=== PATIENT | female | born 1980 | race African-American/Black ===

== ENCOUNTER 2016-09-26 12:11 | Emergency (ER) | payer MEDICAID, OTHER ==
[2016-09-26 12:24] VITALS: BP 99/83
[2016-09-26] MEDS ORDERED: Ketorolac 60 MG/2 ML SDV IM ONE (13:07)
[2016-09-26] MEDS ORDERED: Orphenadrine 100 MG Tab.ER PO ONE (13:07)
--- NOTE | 2016-09-26 13:13 | EDM.PDOC ---
ED HPI GENERAL MEDICAL PROBLEM - General Chief Complaint: Back Pain or Injury Stated Complaint: BACK PAIN Time Seen by Provider: 09/26/16 12:50 Source of Information: Reports: Patient History Limitations: Reports: No Limitations - History of Present Illness INITIAL COMMENTS - FREE TEXT/NARRATIVE: Patient is a 36-year-old female who presents to the ED complaining of left- sided mid thoracic and lumbar back pain to paraspinal muscles. Patient states approx 3 weeks ago she was moving a dresser and while doing this strained some muscles in her back. Pain has waxed and waned in intensity with no relief taking Tylenol, ibuprofen, Percocet and tramadol. Pain worsens with lifting or any type of movement. Decreased with resting. Pain is localized with no radiation. She has a history of injury to her back many years ago with similar symptoms. There is no sciatica, saddle anesthesia, numbness or tingling to extremities, or incontinence to urine or stool. She describes discomfort as a muscle strain. The Percocet and tramadol were not hers but her sisters. She's been taking these as needed. 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 States work re-aggravates the injury. She cannot take any time off. Otherwise offers no additional complaints. 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: - Past Surgical History Other HEENT Surgeries/Procedures: missing teeth Female Surgical History: Reports: Section Social & Family History - Tobacco Use Smoking Status *Q: Current Some Day Smoker Years of Tobacco use: 16 Packs/Tins Daily: 1 Used Tobacco, but Quit: No Second Hand Smoke Exposure: No - Caffeine Use Caffeine Use: Reports: Coffee - Alcohol Use Days Per Week of Alcohol Use: 0 - Recreational Drug Use Recreational Drug Use: Yes Drug Use in Last 12 Months: Yes Recreational Drug Type: Reports: Marijuana/Hashish Other Recreational Drug Type: last use was a couple of weeks ago Recreational Drug Use Frequency: Socially Recreational Drug Last Use: august 2014 ED ROS GENERAL - Review of Systems Review Of Systems: ROS reveals no pertinent complaints other than HPI. ED EXAM,LOWER BACK PAIN/INJURY - Physical Exam Exam: See Below Exam Limited By: No Limitations General Appearance: Alert, WD/WN, No Apparent Distress Ears: Normal External Exam, Hearing Grossly Normal Throat/Mouth: Normal Voice, No Airway Compromise Neck: Normal Inspection, Supple, Non-Tender, Full Range of Motion Respiratory/Chest: No Respiratory Distress, Lungs Clear, Normal Breath Sounds Cardiovascular: Normal Peripheral Pulses, Regular Rate, Rhythm GI/Abdominal: Normal Bowel Sounds Back Exam: Other (Pain along the left paraspinal muscle mid thoracic and lumbar spine. No vertebral tenderness noted. No bruising, swelling, ecchymosis noted. Pain is localized with palpation. No bony abdomen is noted.) Extremities: Normal Inspection, Normal Range of Motion, Non-Tender, No Pedal Edema Neurological: Alert, Normal Mood/Affect, Normal Dorsiflexion, CN II-XII Intact ( As tested), Normal Plantar Flexion, No Motor/Sensory Deficits, Oriented x 3. No : Straight Leg Raise (L), Straight Leg Raise (R) Psychiatric: Normal Affect, Normal Mood Skin Exam: Warm, Dry, Intact, Normal Color Course - Vital Signs Last Recorded V/S: Last Vital Signs Temp 97.1 F 09/26/16 12:19 Pulse 87 09/26/16 12:19 Resp 16 09/26/16 12:19 BP 99/83 09/26/16 12:19 Pulse Ox 99 09/26/16 12:19 - Orders/Labs/Meds Meds: Medications Discontinued Medications Generic Name Dose Route Start Last Admin Trade Name Rachel PRN Reason Stop Dose Admin Ketorolac Tromethamine 60 mg 09/26/16 13:07 09/26/16 13:14 Toradol IM 09/26/16 13:08 60 mg ONETIME ONE Administration Orphenadrine Citrate 100 mg 09/26/16 13:07 09/26/16 13:14 Norflex PO 09/26/16 13:08 100 mg BID ONE Administration - Re-Assessments/Exams Free Text/Narrative Re-Assessment/Exam: Examination did not reveal any concerning findings. Pain is localized to the left mid thoracic paraspinal muscles worsened with palpation. No bony abnormality is noted. Will order Toradol 60 mg IM and also Norflex 100 mg by mouth. Presumably this is a muscle strain with history of muscle spasms. Patient is already taking ibuprofen, Tylenol, tramadol, and Percocet. The narcotics are her sisters. Will discharge patient home with instructions as documented. Departure - Departure Time of Disposition: 13:27 Disposition: Home, Self-Care 01 Condition: Good Clinical Impression: Strain of back Qualifiers: Encounter type: initial encounter Qualified Code(s): S39.012A - Strain of muscle, fascia and tendon of lower back, initial encounter - Discharge Information Prescriptions: Orphenadrine [Norflex] 100 mg PO BID #6 tab.er Instructions: Muscle Strain, [id number], Back Injury Prevention, [id number] , Back Pain, Adult, [id number] Referrals: PCP,None [Primary Care Provider] - Forms: ED Department Discharge Additional Instructions: Etiology current complaint muscle strain. Continue utilizing Tylenol 650 mg by mouth every 6 hours and ibuprofen 600 mg every 6 hours by mouth in alternating fashion for pain. Take the ibuprofen with food and drink plenty of water. Taking Norflex as prescribed. Refrain from any activities that cause worsening pain. Can utilize warm compresses, cold Compresses, and also gentle massage. CT a primary care provider at [facility] and [facility] for reevaluation and treatment end of this week or first part of next week. Return to ED for any new or worsening symptoms. No driving today nor while taking the norflex.
== END 2016-09-26 13:27 | disposition home or self-care (01) ==
LOC: JD.ED 12:11
DX: S39.012A Strain of muscle, fascia and tendon of lower back, initial encounter (principal); F17.210 Nicotine dependence, cigarettes, uncomplicated; X50.0XXA Overexertion from strenuous movement or load, initial encounter
CPT/HCPCS: 96372; 99283; A9270; J1885

== ENCOUNTER 2016-11-02 18:37 | Emergency (ER) | payer MEDICAID ==
[2016-11-02 19:05] VITALS: BP 125/88
--- NOTE | 2016-11-02 19:25 | EDM.PDOC ---
ED HPI GENERAL MEDICAL PROBLEM - General Chief Complaint: Back Pain or Injury Stated Complaint: back pain Time Seen by Provider: 11/02/16 19:15 Source of Information: Reports: Patient History Limitations: Reports: No Limitations - History of Present Illness INITIAL COMMENTS - FREE TEXT/NARRATIVE: 36-year-old female presents the ED with sudden onset of severe upper back pain that occurred in the workplace this afternoon. 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 She states that she was taking carrying a tray of about 40 pounds weight to her workstation she developed sudden onset of severe spasm in her upper back right side greater than left. Just about caused her to drop the tray of meat. Another coworker took the tray from her hands before she dropped it. Since then it hurts to breathe deeply. She states she's had many similar type of problems over many years. States one of her teenage kids jumped on her back yesterday and although the time she did not feel that she had been injured it is possible this caused problems. Onset: Today Onset Date: 11/02/16 Onset Time: 17:00 Duration: Hour(s): Location: Reports: Back (Upper mid back) Quality: Reports: Ache, Sharp, Stabbing, Other Severity: Moderate (Worsens by deep breathing currently 6 out of 10.) Improves with: Reports: Rest Worsens with: Reports: Other, Movement (Deep breathing) Context: Reports: Activity (Was in the workplace carrying a heavy tray of about 40 pounds of food when she developed a spasms.). 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: Other (see below) (None.) Middle Back Pain Score (Numeric/FACES): 10 - Related Data Allergies Allergy/AdvReac Type Severity Reaction Status Date / Time No Known Allergies Allergy Verified 11/02/16 19:04 Home Meds: Home Meds Cyclobenzaprine [Flexeril] 10 mg PO BEDTIME PRN #10 tablet 11/02/16 [Rx] oxyCODONE HCl/Acetaminophen [Percocet 5-325 mg Tablet] 1 - 2 each PO Q4H PRN # 20 tablet 11/02/16 [Rx] Past Medical History - Past Health History Medical/Surgical History: Denies Medical/Surgical History HEENT History: Reports: None 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: - Past Surgical History Other HEENT Surgeries/Procedures: missing teeth Female Surgical History: Reports: Section Social & Family History - Tobacco Use Smoking Status *Q: Unknown Ever Smoked Years of Tobacco use: 16 Packs/Tins Daily: 1 Used Tobacco, but Quit: No Second Hand Smoke Exposure: No - Caffeine Use Caffeine Use: Reports: Coffee - Alcohol Use Days Per Week of Alcohol Use: 0 - Recreational Drug Use Recreational Drug Use: Yes Drug Use in Last 12 Months: Yes Recreational Drug Type: Reports: Marijuana/Hashish Other Recreational Drug Type: last use was a couple of weeks ago Recreational Drug Use Frequency: Socially Recreational Drug Last Use: august 2014 - Living Situation & Occupation Living situation: Reports: Single Occupation: Employed ED ROS GENERAL - Review of Systems Review Of Systems: See Below Constitutional: Denies: Fever, Chills, Malaise, Weakness, Fatigue, Decreased Appetite, Weight Loss HEENT: Reports: No Symptoms Respiratory: Reports: Shortness of Breath (With deep breathing due to pain in her upper back.) Cardiovascular: Denies: Chest Pain Endocrine: Reports: No Symptoms GI/Abdominal: Reports: No Symptoms : Reports: No Symptoms Musculoskeletal: Reports: Back Pain (Upper back pain) Skin: Reports: No Symptoms ( left side worse than the right.) Neurological: Reports: No Symptoms Psychiatric: Reports: No Symptoms Hematologic/Lymphatic: Reports: No Symptoms Immunologic: Reports: No Symptoms ED EXAM, UPPER BACK/NECK PAIN - Physical Exam Exam: See Below Exam Limited By: No Limitations General Appearance: Alert, WD/WN, Anxious, Mild Distress Eye Exam: Bilateral Eye: Normal Inspection Neck Exam: Non-Tender, Full Range of Motion, Normal Alignment, Normal Inspection. No: Muscle Spasm Cardiovascular/Respiratory: Regular Rate, Rhythm, No M/R/G, Normal Peripheral Pulses, Normal Breath Sounds GI/Abdominal: Normal Bowel Sounds, Soft, Non-Tender, No Organomegaly, No Distention Back Exam: Normal Inspection, Muscle Spasm (On both sides of the mid thoracic spine there is muscle spasm. I thought it did be worse on the left with point tenderness over rib head 8. Worse on the right side over rib head #6. 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 Likely chronic.) Extremities: Normal Inspection, Normal Range of Motion, Non-Tender, No Pedal Edema, Normal Capillary Refill Neurologic: household chores II-XII nml As Tested, No Motor/Sensory Deficits, Alert, Normal Mood/Affect ( There is overlying moderate muscle spasm.) Psychiatric: Normal Affect Skin Exam: Normal Color Lymphatic: No Adenopathy Course - Vital Signs Last Recorded V/S: Last Vital Signs Temp 37.1 C 11/02/16 19:02 Pulse 88 11/02/16 19:02 Resp 18 11/02/16 19:02 BP 125/88 11/02/16 19:02 Pulse Ox 100 11/02/16 19:02 - Radiology Interpretation Free Text/Narrative:: 36-year-old female presents to the ED after sudden onset of severe upper mid back spasms while she was carrying a heavy tray of meat product from the color to her workstation at [employer] where she works. This occurred about 1700 hrs. this afternoon. Examination reveals good air entry to both lung [place]. Heart sinus murmurs are identified. Upper back reveals paraspinal muscle spasm bilaterally worse on the left as compared to the right. Marked pain localized to the seventh and eighth rib heads on the left side and 6 on the right side. 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 Never followed up with a chiropractor or massage therapist. She is off work for the next few days. Christiano Aleve 2 tablets every 8 hours or Motrin 600 mg every 6 hours for pain and inflammation. Flexeril 10 mg primarily at bedtime due to its sedative effect. This used when necessary for muscle spasm. Percocet 5/3/25 milligram tablets one or 2 every 4-6 hours for pain relief as needed. I suspect she will get by with one tablet every 4-6 hours as she is not very big. She will follow- up with chiropractor or massage therapist early next week. Off work for the next 48 hours. Departure - Departure Time of Disposition: 19:20 Disposition: Home, Self-Care 01 Condition: Fair Clinical Impression: Strain of thoracic spine Qualifiers: Encounter type: initial encounter Qualified Code(s): S29.019A - Strain of muscle and tendon of unspecified wall of thorax, initial encounter - Discharge Information Prescriptions: Cyclobenzaprine [Flexeril] 10 mg PO BEDTIME PRN #10 tablet PRN Reason: muscle spasms back oxyCODONE HCl/Acetaminophen [Percocet 5-325 mg Tablet] 1 - 2 each PO Q4H PRN # 20 tablet PRN Reason: pain relief. Referrals: PCP,None [Primary Care Provider] - Forms: ED Department Discharge Additional Instructions: Evaluation in the emergency room today in regards to acute onset of severe upper back pain. This occurred in the workplace while carrying a heavy tray of about 40 pounds of fluid. Sudden onset of severe spasm in the upper back nearly causing to drop the tray were carrying. Subsequently every breath is painful as deep breathing will precipitate further spasm. You have experienced similar type events. Examination reveals rib head subluxation at thoracic 8 and 9 on the left side and thoracic 6 on the right side. Rib heads that are slightly out of place cause over lying muscle spasms. Rib heads often subluxate during deep sleep when sleeping on her side. At any rate I would suggest follow-up with massage therapist or chiropractor to have the rib bed suggested it put back into place. In the meantime treatment is rest without any pushing , pulling or carrying activities until things are better. Suggest Motrin 600 mg every 6 hours or Aleve 2 tablets every 8 hours for pain and inflammation. Flexeril 10 mg at bedtime to relieve muscle spasms as needed. Percocet 5/325 milligram tablet 1 tablet usually every 4-6 hours for pain relief. Again this medicine is to be used for pain not controlled by Aleve or Motrin alone. Off work for the next 2 days.
== END 2016-11-02 19:36 | disposition home or self-care (01) ==
LOC: JD.ED 18:37
DX: S29.019A Strain of muscle and tendon of unspecified wall of thorax, initial encounter (principal); X50.0XXA Overexertion from strenuous movement or load, initial encounter
CPT/HCPCS: 99283

== ENCOUNTER 2018-08-10 21:00 | Emergency (ER) | payer MEDICAID ==
[2018-08-10 21:10] VITALS: BP 113/47
[2018-08-10] MEDS ORDERED: Sodium Chloride 0.9% 10 ML Syringe FLUSH PRN (21:21)
[2018-08-10] MEDS ORDERED: methylPREDNISolone Sodium Succinate 125 MG/2 ML SDV IVPUSH ONE (21:22)
[2018-08-10] MEDS ORDERED: Famotidine 20 MG/2 ML SDV IVPUSH ONE (21:23)
[2018-08-10] MEDS ORDERED: diphenhydrAMINE 50 MG/ML SDV IVPUSH ONE (21:23)
--- NOTE | 2018-08-10 22:27 | EDM.PDOC ---
ED HPI GENERAL MEDICAL PROBLEM - General Chief Complaint: ENT Problem Stated Complaint: SWELLING IN NECK AND THROAT Time Seen by Provider: 08/10/18 21:14 Source of Information: Reports: Patient History Limitations: Reports: No Limitations - History of Present Illness INITIAL COMMENTS - FREE TEXT/NARRATIVE: The patient presents with a sore throat, mouth swelling and shortness of breath. She says this all started on Saturday. She woke up with some swelling of her lips, tongue, throat and under her jaw. She has no fever or chills. She has a cough and some congestion that started a few days before. She will wake up with this and it gets better over the days. She has no history of allergies and she is not on any new meds or foods. She has no chest pain or abdominal pain with nausea or vomiting. Onset: Gradual Duration: Day(s): Location: Reports: Other (throat) Quality: Reports: Ache Severity: Mild Improves with: Reports: None Worsens with: Reports: None Associated Symptoms: Reports: Cough, Shortness of Breath. 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: - Infectious Disease History Infectious Disease History: Reports: Chicken Pox - Past Surgical History Other HEENT Surgeries/Procedures: missing teeth Female Surgical History: Reports: Section Social & Family History - Family History Family Medical History: Noncontributory - Tobacco Use Smoking Status *Q: Light Tobacco Smoker Years of Tobacco use: 10 Packs/Tins Daily: 1 - Caffeine Use Caffeine Use: Reports: Coffee - Recreational Drug Use Recreational Drug Use: Yes Recreational Drug Type: Reports: Marijuana/Hashish - Living Situation & Occupation Living situation: Reports: Single Occupation: Employed ED ROS ENT - Review of Systems Review Of Systems: See Below Constitutional: Reports: No Symptoms HEENT: Reports: Other (Congestion) Respiratory: Reports: Shortness of Breath, Cough Cardiovascular: Reports: No Symptoms Endocrine: Reports: No Symptoms GI/Abdominal: Reports: No Symptoms Musculoskeletal: Reports: No Symptoms Skin: Reports: No Symptoms ED EXAM, ENT - Physical Exam Exam: See Below Exam Limited By: No Limitations General Appearance: Alert, No Apparent Distress Ears: Normal External Exam Nose: Normal Inspection Mouth/Throat: Other (Mild erythema of the oropharynx) Head: Atraumatic, Normocephalic Neck: Other (Lymphadenopathy submandibular) Respiratory/Chest: No Respiratory Distress, Lungs Clear, Normal Breath Sounds Cardiovascular: Regular Rate, Rhythm, No Edema, No Murmur GI/Abdominal: Soft, Non-Tender, No Organomegaly, No Mass Back: Normal Inspection Extremities: Normal Inspection Course - Vital Signs Last Recorded V/S: Last Vital Signs Temp Pulse 95 08/10/18 21:07 Resp 18 08/10/18 21:07 BP 113/47 L 08/10/18 21:07 Pulse Ox 100 08/10/18 21:07 - Orders/Labs/Meds Orders: Active Orders 24 hr Category Date Time Status Cardiac Monitoring [RC] . DIRECTED Care 08/10/18 21:21 Active Peripheral IV Care [RC] . DIRECTED Care 08/10/18 21:22 Active Chest 1V Frontal [CR] Stat Exams 08/10/18 22:23 Taken CULTURE STREP A CONFIRMATION [] Stat Lab 08/10/18 21:47 Results STREP SCRN A RAPID W CULT CONF [] Stat Lab 08/10/18 21:47 Results Sodium Chloride 0.9% [Saline Flush] Med 08/10/18 21:21 Active 10 ml FLUSH ASDIRECTED PRN Peripheral IV Insertion Adult [OM.PC] Stat Oth 08/10/18 21:21 Ordered Medication Orders Sodium Chloride (Saline Flush) 10 ml FLUSH ASDIRECTED PRN PRN Reason: Keep Vein Open Last Admin: 08/10/18 21:41 Dose: 10 ml Labs: Laboratory Tests 08/10/18 08/10/18 08/10/18 Range/Units 21:35 21:35 21:35 WBC 11.05 H (3.98-10.04) K/mm3 RBC 4.46 (3.98-5.22) M/mm3 Hgb 10.5 L D (11.2-15.7) gm/L Hct 33.9 L (34.1-44.9) % MCV 76.0 L (79.4-94.8) fl MCH 23.5 L (25.6-32.2) pg MCHC 31.0 L (32.2-35.5) g/dl RDW Std Deviation 43.7 (36.4-46.3) fL Plt Count 217 (182-369) K/mm3 MPV 10.0 (9.4-12.3) fl Neut % (Auto) 77.2 H (34.0-71.1) % Lymph % (Auto) 10.9 L (19.3-51.7) % [place] % (Auto) 9.4 (4.7-12.5) % Eos % (Auto) 2.0 (0.7-5.8) Baso % (Auto) 0.4 (0.1-1.2) % Neut # (Auto) 8.54 H (1.56-6.13) K/mm3 Lymph # (Auto) 1.20 (1.18-3.74) K/mm3 [place] # (Auto) 1.04 H (0.24-0.36) K/mm3 Eos # (Auto) 0.22 (0.04-0.36) K/mm3 Baso # (Auto) 0.04 (0.01-0.08) K/mm3 Sodium 137 (136-145) mEq/L Potassium 3.4 L (3.5-5.1) mEq/L Chloride 105 (98-107) mEq/L Carbon Dioxide 21 (21-32) mEq/L Anion Gap 14.4 (5-15) BUN 10 (7-18) mg/dL Creatinine 0.9 (0.55-1.02) mg/dL Est Cr Clr Drug Dosing 73.90 mL/min Estimated GFR (MDRD) > 60 (>60) mL/min BUN/Creatinine Ratio 11.1 L (14-18) Glucose 123 H (74-106) mg/dL Calcium 8.1 L (8.5-10.1) mg/dL Total Bilirubin 0.2 (0.2-1.0) mg/dL AST 14 L (15-37) U/L ALT 17 (14-59) U/L Alkaline Phosphatase 53 (46-116) U/L Total Protein 7.1 (6.4-8.2) g/dl Albumin 3.8 (3.4-5.0) g/dl Globulin 3.3 gm/dL Albumin/Globulin Ratio 1.2 (1-2) Monoscreen Negative (NEGATIVE) Meds: Medications Generic Name Dose Route Start Last Admin Trade Name Rachel PRN Reason Stop Dose Admin Sodium Chloride 10 ml 08/10/18 21:21 08/10/18 21:41 Saline Flush FLUSH 10 ml ASDIRECTED PRN Administration Keep Vein Open Discontinued Medications Generic Name Dose Route Start Last Admin Trade Name Rachel PRN Reason Stop Dose Admin Diphenhydramine HCl 50 mg 08/10/18 21:23 08/10/18 21:42 Benadryl IVPUSH 08/10/18 21:24 50 mg ONETIME ONE Administration Famotidine 20 mg 08/10/18 21:23 08/10/18 21:40 Pepcid IVPUSH 08/10/18 21:24 20 mg ONETIME ONE Administration Methylprednisolone Sodium Succinate 125 mg 08/10/18 21:22 08/10/18 21:37 Solu-Medrol IVPUSH 08/10/18 21:23 125 mg ONETIME ONE Administration - Re-Assessments/Exams Free Text/Narrative Re-Assessment/Exam: 08/10/18 22:26 I ordered an IV Saline lock, solu-medrol 125mg IV, benadryl 50mg IV, pepcid 20mg IV, labs and strep. Her rapid strep was negative. Her mono was negative. Her WBC was elevated at 11.05. Her Hgb was low at 10.5. 08/10/18 22:54 Her strep and mono are negative. Her WBC was slightly elevated at 11.05. Her Hgb was low at 10.5. Her K was low at 3.4. Her glucose was 124. Her mono is negative. I feel this is an allergic reaction. I will get her on some prednisone. Departure - Departure Time of Disposition: 22:55 Disposition: Home, Self-Care 01 Condition: Good Clinical Impression: Allergic reaction Qualifiers: Encounter type: initial encounter Qualified Code(s): T78.40XA - Allergy, unspecified, initial encounter - Discharge Information *PRESCRIPTION DRUG MONITORING PROGRAM REVIEWED*: Not Applicable *COPY OF PRESCRIPTION DRUG MONITORING REPORT IN PATIENT VERA: Not Applicable Prescriptions: predniSONE [Prednisone] 40 mg PO DAILY #10 tablet Referrals: PCP,None [Primary Care Provider] - Trupti Bain PA-C [[employer]] - 1 Week Forms: ED Department Discharge Additional Instructions: Take the prednisone daily for 5 days. Take pepcid daily for 5 days. Take benadryl every 6 hours as needed for any swelling or shortness of breath. Please return if you are worse. - My Orders Last 24 Hours: My Active Orders 08/10/18 21:21 Cardiac Monitoring [RC] . DIRECTED Sodium Chloride 0.9% [Saline Flush] 10 ml FLUSH ASDIRECTED PRN Peripheral IV Insertion Adult [OM.PC] Stat 08/10/18 21:22 Peripheral IV Care [RC] . DIRECTED 08/10/18 21:47 CULTURE STREP A CONFIRMATION [RM] Stat STREP SCRN A RAPID W CULT CONF [RM] Stat 08/10/18 22:23 Chest 1V Frontal [CR] Stat - Assessment/Plan Last 24 Hours: My Active Orders 08/10/18 21:21 Cardiac Monitoring [RC] . DIRECTED Sodium Chloride 0.9% [Saline Flush] 10 ml FLUSH ASDIRECTED PRN Peripheral IV Insertion Adult [OM.PC] Stat 08/10/18 21:22 Peripheral IV Care [RC] . DIRECTED 08/10/18 21:47 CULTURE STREP A CONFIRMATION [RM] Stat STREP SCRN A RAPID W CULT CONF [RM] Stat 08/10/18 22:23 Chest 1V Frontal [CR] Stat
--- NOTE | 2018-08-11 08:07 | CR ---
Chest: Portable view of the chest was obtained. Comparison: No prior chest x-ray. Heart size and mediastinum are normal. Lungs are clear. Bony structures are grossly intact. Impression: 1. Nothing acute is seen on portable chest x-ray. Diagnostic code #1
== END 2018-08-10 23:06 | disposition home or self-care (01) ==
LOC: JD.ED 21:00
DX: T78.40XA Allergy, unspecified, initial encounter (principal); F17.210 Nicotine dependence, cigarettes, uncomplicated
CPT/HCPCS: 36415; 71045; 80053; 85025; 86308; 87081; 87430; 96374; 96375; 99283; J1200; J2930; J3490; 99284